=== PATIENT | male | born 1995 | race Caucasian/White ===

== ENCOUNTER 2020-03-15 09:40 | Emergency (ER) | payer OTHER ==
[~2020-03-15] VITALS: Ht 172.7 cm; Wt 77.1 kg
[~2020-03-15 09:40] MED LIST: ALBUTEROL INHAL17 GM; EXCEDRIN CAPLE1 EACH PO; GEODON40 MG; INTUNIV3 MG; LITHIUM CARBON300 M3; MELATONIN3 MG PO; SEROQUEL PO; SINGULAIR; STRATTERA60 MG; ZOLOFT PO; [UNRECOGNIZED DRUG - OTHER]; [UNRECOGNIZED DRUG - OTHER]
[2020-03-15] MEDS ORDERED: BACTRIM DS TAB1 EACH PO (10:11)
[2020-03-15] MEDS ORDERED: NORCO 5-325 TA1 EAC1 PO (10:11)
[2020-03-15 10:26] VITALS: BP 197/97
== END 2020-03-15 10:28 | disposition home or self-care (01) ==
LOC: M.ERS 09:40
DX: L02.511 Cutaneous abscess of right hand (principal); J45.909 Unspecified asthma, uncomplicated; F31.9 Bipolar disorder, unspecified; F90.9 Attention-deficit hyperactivity disorder, unspecified type; F17.210 Nicotine dependence, cigarettes, uncomplicated; Z88.0 Allergy status to penicillin